=== PATIENT | female | born 1965 | race Caucasian/White ===

== ENCOUNTER 2018-05-06 15:46 | Emergency (ER) | payer BC ==
[~2018-05-06] VITALS: Ht 160 cm; Wt 58.9 kg
[~2018-05-06 15:46] MED LIST: ESTRADIOL-NORE1 EACH PO; LEVOTHYROXINE88 MCG PO; PERCOCET 5/31 TABLET PO
[2018-05-06 15:59] VITALS: BP 171/94
[2018-05-06] MEDS ORDERED: PERCOCET 5/31 TABLET PO (16:30)
== END 2018-05-06 17:47 | disposition home or self-care (01) ==
LOC: EME 15:46
PROC: 2W3QX1Z Immobilization of Right Lower Leg using Splint (ICD-10-PCS; principal; 2018-05-06)
DX: S92.351A Displaced fracture of fifth metatarsal bone, right foot, initial encounter for closed fracture (principal); W18.41XA Slipping, tripping and stumbling without falling due to stepping on object, initial encounter; X50.1XXA Overexertion from prolonged static or awkward postures, initial encounter; Z88.0 Allergy status to penicillin; Z88.1 Allergy status to other antibiotic agents
CPT/HCPCS: 73610; 73630; 99281; 99284